=== PATIENT | male | born 1985 | race Caucasian/White ===

== ENCOUNTER 2017-11-27 12:55 | Emergency (ER) | payer BC, OTHER ==
--- NOTE | 2017-11-27 14:27 | UC ---
Throat Pain/Nasal Kar HPI - HPI Summary HPI Summary: 32 yo male presents with sore throat, body aches, and low grade fever since yesterday. He tells me that 4 days ago pt was with his 1 yo daughter in the ED because she had a febrile seizure - later was found to have hand, foot, mouth dz. Pt did not have any symptoms until yesterday when the above started. He has been taking ibuprofen for his symptoms with mild relief. He has felt feverish and says his temperature was "just under 100F". Denies cough, SOB, chest pain, abdominal pain, n/v/d/c, dysuria. - History of Current Complaint Hx Obtained From: Patient Onset/Duration: Sudden Onset Severity: Moderate Pain Intensity: 5 Pain Scale Used: 0-10 Numeric <Robe Moses - Last Filed: 11/27/17 15:20> <Sergio Payne - Last Filed: 11/27/17 16:38> - History of Current Complaint Stated Complaint: FEVER,ST,STOMACH ACHE,DIZZINESS Time Seen by Provider: 11/27/17 14:25 - Allergies/Home Medications Allergies/Adverse Reactions: Allergies Allergy/AdvReac Type Severity Reaction Status Date / Time No Known Allergies Allergy Verified 11/27/17 14:43 Home Medications: Home Medications Acetaminophen TAB* [Tylenol TAB*] 500 mg PO Q4H PRN 11/27/17 [History Confirmed 11/27/17] Naproxen Sodium [Aleve] 220 mg PO Q6HR PRN 11/27/17 [History Confirmed 11/27/17] PMH/Surg Hx/FS Hx/Imm Hx - Additional Past Medical History Additional PMH: None Previously Healthy: Yes - Surgical History Surgical History: Yes Surgery Procedure, Year, and Place: left knee surgery x 3 - Family History Known Family History: Positive: None - Social History Occupation: Employed Full-time Lives: With Family Alcohol Use: Rare Substance Use Type: None Smoking Status (MU): Never Smoked Tobacco <Robe Moses - Last Filed: 11/27/17 15:20> Review of Systems Constitutional: Fever, Other - Body aches Skin: Negative Eyes: Negative ENT: Sore Throat Respiratory: Negative Cardiovascular: Negative Gastrointestinal: Negative Neurovascular: Negative Musculoskeletal: Negative Neurological: Negative Psychological: Negative All Other Systems Reviewed And Are Negative: Yes <Robe Moses - Last Filed: 11/27/17 15:20> Physical Exam - Summary Physical Exam Summary: GENERAL: NAD. WDWN. No pain distress. SKIN: No rashes, sores, lesions, or open wounds. HEENT: Head: AT/NC Eyes: Conjunctiva clear without inflammation or discharge. Ears: Hearing grossly normal. TMs intact, no bulging, erythema, or edema. Nose: Nasal mucosa pink and moist. NTTP maxillary and frontal sinus. Throat: Posterior oropharynx mild erythema. No tonsillar enlargement. No exudates. Uvula midline. No hoarse voice or muffled voice. NECK: Supple. Nontender. No lymphadenopathy. CHEST: CTAB. No r/r/w. No accessory muscle use. Breathing comfortably and in no distress. CV: RRR. Without m/r/g. Pulses intact. Brisk cap refill. NEURO: Alert. CN II-XII grossly intact. PSYCH: Age appropriate behavior. Triage Information Reviewed: Yes Vital Signs: Vital Signs: Temp Pulse Resp BP Pulse Ox 98.9 F 95 14 134/83 99 11/27/17 14:39 11/27/17 14:39 11/27/17 14:39 11/27/17 14:39 11/27/17 14:39 Laboratory Tests 11/27/17 11/27/17 14:48 15:04 Influenza A (Rapid) Negative Influenza B (Rapid) Negative Group A Strep Rapid Negative <Robe Moses - Last Filed: 11/27/17 15:20> Vital Signs: Initial Vital Signs Temp 98.9 F 11/27/17 14:39 Pulse 95 11/27/17 14:39 Resp 14 11/27/17 14:39 BP 134/83 11/27/17 14:39 Pulse Ox 99 11/27/17 14:39 <Sergio Payne - Last Filed: 11/27/17 16:38> Throat Pain/Nasal Course/Dx - Course Course Of Treatment: POC strep and flu negative. Suspect viral illness. Advised to take tylenol/ibuprofen and f/u prn. - Differential Dx/Diagnosis Provider Diagnoses: Viral syndrome <Robe Moses Last Filed: 11/27/17 15:20> Discharge - Sign-Out/Discharge Documenting (check all that apply): Discharge/Admit/Transfer - Billing Disposition and Condition Condition: STABLE Disposition: Home <JosuéRobe - Last Filed: 11/27/17 15:20> - Billing Disposition and Condition Condition: STABLE Disposition: Home <Sergio Payne - Last Filed: 11/27/17 16:38> - Discharge Plan Condition: Stable Disposition: HOME Patient Education Materials: Viral Syndrome (ED) Referrals: Kayli Jaime PA [Primary Care Provider] - Additional Instructions: If you develop a fever, shortness of breath, chest pain, new or worsening symptoms - please call your PCP or go to the ED. Per institutional requirements, I have reviewed the chart, however, I was not consulted specifically or made aware of this patient by the above midlevel provider. I did not personally evaluate, interact with , or disposition this patient.
[2017-11-27 14:44] VITALS: BP 134/83
== END 2017-11-27 15:25 | disposition home or self-care (01) ==
LOC: UCCORT 12:55
DX: B34.9 Viral infection, unspecified (principal)
CPT/HCPCS: 87502; 87651; 99211; G0463

== ENCOUNTER 2018-12-30 19:44 | Emergency (ER) | payer OTHER ==
[2018-12-30 20:10] VITALS: BP 131/74
[2018-12-30] MEDS ORDERED: Tetan/Diph/Pertus SYR(Tdap)* 0.5 ML SYR(BOOSTRIX) use SYR IM ONE (20:12)
--- NOTE | 2018-12-30 20:13 | UC ---
Laceration HPI - HPI Summary HPI Summary: 33 y/o male presents to the urgent care c/o linear laceration on his left upper arm above the elbow w/ a glass at work this morning around 0930AM today. Pt reports he was cutting a sheet of glass and his arm got sliced on a piece of glass laying on the shelf next to him. Pt reports bleeding stopped w/ pressure. He is not UTD w/ tetanus vaccine. Pt states pain at touch is 2/10 and denies numbness or tingling sensation over the left arm, previous injury, SOB, chest pain, abdominal pain, N/v/d. - History Of Current Complaint Chief Complaint: UCWounds Stated Complaint: WC - LEFT ARM LACERATION Time Seen by Provider: 12/30/18 20:12 Hx Obtained From: Patient Laceration Location: Arm - left upper arm superficial laceration w/a glass at work Mechanism Of Injury: Sharp Trauma Onset/Duration: Lasting Hours - 11hrs ago Severity: Mild Pain Intensity: 2 - at touch Pain Scale Used: 0-10 Numeric Aggravating Factors: Other: - touch Related History: Dominant Hand Right - Allergies/Home Medications Allergies/Adverse Reactions: Allergies Allergy/AdvReac Type Severity Reaction Status Date / Time No Known Allergies Allergy Verified 12/30/18 20:10 PMH/Surg Hx/FS Hx/Imm Hx Previously Healthy: Yes Respiratory History: Asthma - Surgical History Surgical History: Yes Surgery Procedure, Year, and Place: left knee surgery x 3 - Family History Known Family History: Positive: Cardiac Disease, Hypertension, Diabetes - Social History Occupation: Employed Full-time Lives: With Family Alcohol Use: Rare Substance Use Type: None Smoking Status (MU): Never Smoked Tobacco - Immunization History Most Recent Tetanus Shot: estimates 15 yrs ago Hx Tetanus, Diphtheria Vaccination: No Review of Systems All Other Systems Reviewed And Are Negative: Yes Constitutional: Positive: Negative Skin: Positive: Other - left upper arm superficial laceration w/a glass at work Eyes: Positive: Negative ENT: Positive: Negative Respiratory: Positive: Negative Cardiovascular: Positive: Negative Gastrointestinal: Positive: Negative Genitourinary: Positive: Negative Motor: Positive: Negative Neurovascular: Positive: Negative Musculoskeletal: Positive: Negative Neurological: Positive: Negative Psychological: Positive: Negative Is Patient Immunocompromised?: No Physical Exam - Summary Physical Exam Summary: Vital Signs Reviewed: Yes General: well developed, well nourished male sitting in the examining table w/o any apparent distress Eye Exam: Normal Eyes: Positive: Conjunctiva Clear - PERRLA, EOMI, fundi grossly normal ENT: Positive: Normal ENT inspection, Hearing grossly normal, Pharynx normal, TMs normal Neck: Positive: Supple, Nontender, No Lymphadenopathy Respiratory: Positive: Chest non-tender, Lungs clear, Normal breath sounds, No respiratory distress Cardiovascular: Positive: RRR, No Murmur, Pulses Normal, Brisk Capillary Refill Abdomen Description: Positive: Nontender, No Organomegaly, Soft. Negative: CVA Tenderness (R), CVA Tenderness (L) Bowel Sounds: Positive: Present Musculoskeletal: Positive: Strength Intact, ROM Intact, No Edema Neurological: Positive: Alert, Muscle Tone Normal Psychological Exam: Normal Skin: Positive:Lateral side of left upper arm with a linear superficial laceration about 4.0cm in size, non bleeding, no foreign body observed. no tenderness to palpation, no ecchymosis around elbow. FROM of LF arm, sensation intact, capillary refill brisk, and pulses WNL. Triage Information Reviewed: Yes Vital Signs: Initial Vital Signs Temp 98.0 F 12/30/18 20:03 Pulse 81 12/30/18 20:03 Resp 18 12/30/18 20:03 BP 131/74 12/30/18 20:03 Pulse Ox 97 12/30/18 20:03 Laceration Repair - Laceration Repair 1 Description: Linear - superficial discrete linear lacetation over the lateral aspect of the Left distal arm Laceration Size After Repair: Length (cm) - 4.0cm Modified For Repair: No Cleansing Completed Via Routine Prep: Yes Closure Material: Skin Adhesive, SteriStrips Closure Method: Single Layer Suture Of: Skin Laceration Course/Dx - Course/Dx Course Of Treatment: 33 y/o male presents to the urgent care c/o linear laceration on his left upper arm above the elbow w/ a glass at work this morning around 0930AM today. Pt reports he was cutting a sheet of glass and his arm got sliced on a piece of glass laying on the shelf next to him. Pt reports bleeding stopped w/ pressure. He is not UTD w/ tetanus vaccine. Pt states pain at touch is 2/10 and denies numbness or tingling sensation over the left arm, previous injury, SOB, chest pain, abdominal pain, N/v/d. Hx obtained. Pt w/ Lateral side of left upper arm with a linear superficial laceration about 4.0cm in size, non bleeding, no foreign body observed. no tenderness to palpation, no ecchymosis around elbow. FROM of LF arm, sensation intact, capillary refill brisk, and pulses WNL on examination. LACERATION PROCEDURE NOTE: . Copious irrigation was done with saline and the wound explored. There was no FB or deep structure injury noted. wound cleaned w/ Iodine swabs. Laceration closed w/ skin adhesive and 6 steri- strips. Wound dressed w/ sterile gauze.The Pt tolerated the procedure well without adverse effects. Neurovascular intact and FROM of finger. Tdap ordered and applied by nurse. Pt advised if any signs of infection develop to immediately return to the urgent care of PCP for further management and treatment. Pt understood and agreed and left the clinic ambulating A&Ox3. - Differential Dx - Laceration/Wound Differental Diagnoses: Abrasion, Avulsion, Laceration, Puncture Wound, Tendon Laceration - Diagnosis Provider Diagnosis: Laceration of left upper arm Discharge - Sign-Out/Discharge Documenting (check all that apply): Patient Departure - D/C home All imaging exams completed and their final reports reviewed: No Studies - Discharge Plan Condition: Stable Disposition: HOME Patient Education Materials: Laceration (ED), Skin Adhesive Care (ED) Referrals: Kayli Jaime PA [Primary Care Provider] - 1 Week Additional Instructions: 1-Please apply Bacitracin topical antibiotic over the wound after steri-strip come off. Keep wound clean and dry 2--Take Ibuprofen or Tylenol PO q6-8hrs prn for pain or swelling. 3- If you develop fever or redness around your finger despite the antibiotic please go to the ER immediately or return to the Urgent care. 4- You were given Tdap vaccine today. - Billing Disposition and Condition Condition: STABLE Disposition: Home
== END 2018-12-30 20:36 | disposition home or self-care (01) ==
LOC: UCCORT 19:44
DX: S41.112A Laceration without foreign body of left upper arm, initial encounter (principal); W25.XXXA Contact with sharp glass, initial encounter; Y93.89 Activity, other specified; Y92.89 Other specified places as the place of occurrence of the external cause; Y99.0 Civilian activity done for income or pay; Z23 Encounter for immunization
CPT/HCPCS: 12002; 90715; 96372; 99211; G0463

== ENCOUNTER 2019-05-13 10:36 | Emergency (ER) | payer BC, OTHER ==
[2019-05-13 10:46] VITALS: BP 138/79
--- NOTE | 2019-05-13 11:01 | UC ---
Throat Pain/Nasal Kar HPI - HPI Summary HPI Summary: 33-year-old male who was treated with Augmentin for a sinusitis on April 11. He states he never completely resolved the infection and over the past week to 10 days he's had increasing sinus pressure and congestion and green nasal coryza. He states now he feels like his in his chest. He does have asthma and has been using his albuterol inhaler 2 puffs every 4 hours. He is a nonsmoker. - History of Current Complaint Chief Complaint: UCGeneralIllness Stated Complaint: SINUSES/COUGH Time Seen by Provider: 05/13/19 10:45 Hx Obtained From: Patient Onset/Duration: Gradual Onset Severity: Mild Pain Intensity: 0 Cough: Productive - Productive cough of green sputum. Associated Signs & Symptoms: Positive: Sinus Discomfort, Nasal Discharge - Allergies/Home Medications Allergies/Adverse Reactions: Allergies Allergy/AdvReac Type Severity Reaction Status Date / Time No Known Allergies Allergy Verified 05/13/19 10:44 Home Medications: Home Medications Phenylephrine/Dm/Acetaminop/GG [Cold & Flu Severe Daytime 1-87-306-325 mg] 1 tab PO ONCE 05/13/19 [History Confirmed 05/13/19] PMH/Surg Hx/FS Hx/Imm Hx Previously Healthy: Yes Respiratory History: Asthma - Surgical History Surgical History: Yes Surgery Procedure, Year, and Place: left knee surgery x 3 - Family History Known Family History: Positive: None, Cardiac Disease, Hypertension, Diabetes - Social History Alcohol Use: Occasionally Substance Use Type: None Smoking Status (MU): Never Smoked Tobacco - Immunization History Most Recent Tetanus Shot: estimates 15 yrs ago Hx Tetanus, Diphtheria Vaccination: No Review of Systems All Other Systems Reviewed And Are Negative: Yes ENT: Positive: Nasal Discharge, Sinus Congestion, Sinus Pain/Tenderness Respiratory: Positive: Cough - Occasional cough with greenish sputum. Is Patient Immunocompromised?: No Physical Exam Triage Information Reviewed: Yes Appearance: Well-Appearing, No Pain Distress, Well-Nourished Vital Signs: Initial Vital Signs Temp 99.2 F 05/13/19 10:44 Pulse 88 05/13/19 10:44 Resp 16 05/13/19 10:44 BP 138/79 05/13/19 10:44 Pulse Ox 98 05/13/19 10:44 Vital Signs Reviewed: Yes Eyes: Positive: Conjunctiva Clear ENT: Positive: Hearing grossly normal, Pharynx normal - Yellowish-green postnasal drainage., Nasal congestion, Nasal drainage - Yellowish-green nasal coryza., TMs normal, Sinus tenderness - Mild tenderness over frontal sinuses., Uvula midline Neck: Positive: Supple, Nontender, No Lymphadenopathy Respiratory: Positive: Lungs clear, Normal breath sounds, No respiratory distress, No accessory muscle use Cardiovascular: Positive: RRR, No Murmur, Pulses Normal, Brisk Capillary Refill Musculoskeletal Exam: Normal Neurological Exam: Normal Psychological Exam: Normal Skin Exam: Normal Throat Pain/Nasal Course/Dx - Course Course Of Treatment: Patient is comfortable here and does not appear ill. I'm going to treat him with doxycycline, he is to continue his albuterol inhaler 2 puffs every 4-6 hours as needed for tight cough or wheezing and I'm also going to treat him with a prednisone taper. He is to follow-up with his primary care provider on Monday if no improvement. - Differential Dx/Diagnosis Provider Diagnosis: Sinusitis Discharge ED - Sign-Out/Discharge Documenting (check all that apply): Patient Departure All imaging exams completed and their final reports reviewed: No Studies - Discharge Plan Condition: Good Disposition: HOME Prescriptions: DOXYcycline CAP(*) [DOXYcycline 100MG CAP(*)] 100 mg PO BID 10 Days #20 cap predniSONE TAB* [Deltasone 10 MG TAB*] 10 mg PO DAILY 12 Days #30 tab Patient Education Materials: Sinusitis (ED) Referrals: Kayli Jaime PA [Primary Care Provider] - Additional Instructions: Increase fluids, continue your albuterol inhaler 2 puffs every 4-6 hours as needed for wheezing. Take the prednisone with food. No dairy products, antacids or multivitamins 2 hours before you take the doxycycline and 2 hours after however be sure and take it with food. Definite follow-up with your primary care provider by Monday if you have no improvement or recheck here. - Billing Disposition and Condition Condition: GOOD Disposition: Home
== END 2019-05-13 11:07 | disposition home or self-care (01) ==
LOC: UCCORT 10:36
DX: J32.9 Chronic sinusitis, unspecified (principal); J45.909 Unspecified asthma, uncomplicated
CPT/HCPCS: 99212; G0463